=== PATIENT | female | born 1990 | race Caucasian/White ===

== ENCOUNTER 2024-07-21 23:37 | Inpatient (IN) | payer OTHER ==
[~2024-07-21] VITALS: Ht 167.6 cm; Wt 109.3 kg
[2024-07-21 23:45] VITALS: RESP 34
[2024-07-21] MEDS: SODIUM CHLORIDE 0.9% 1,000 ML IV SCH (23:50)
[2024-07-21] MEDS: FAMOTIDINE 20MG/2ML VIAL IV ONE (23:50)
[2024-07-21] MEDS: METHYLPREDNISOLONE SOD SUCC 125MG/2ML (ACT-O-VIAL) IV ONE (23:50)
[2024-07-21] MEDS: DIPHENHYDRAMINE 50MG/ML VIAL IV ONE (23:50)
[2024-07-21] MEDS: EPINEPHRINE 1:1000 1 MG/ML AMP IM ONE (23:51)
[2024-07-21 23:56] VITALS: RESP 34
[2024-07-21] MEDS: ALBUTEROL (0.5%) 2.5MG/0.5ML NEB HHN ONE (23:56)
[2024-07-22 00:02] LABS: BASOPHILS % 0.5 % (0.0-2.0); EOSINOPHILS % 2.1 % (0.0-5.0); HEMOGLOBIN. 14.8 g/dL (12.0-16.0); LYMPHOCYTES % 56.8 % (20.0-50.0); MEAN CORPUSCULAR HEMOGLOBIN 26.8 pg (28.0-32.0); MEAN CORPUSCULAR HGB CONC 32.8 g/dL (31.0-37.0); MEAN CORPUSCULAR VOLUME 81.7 fL (81.0-99.0); MEAN PLATELET VOLUME 9.7 fl (7.4-10.4); MONOCYTES % 6.8 % (2.0-8.0); NEUTROPHILS % 33.8 % (40.0-76.0); PLATELET 305 x1000/uL (130-400); RED CELL DISTRIBUTION WIDTH 14.9 % (11.6-14.6)
[2024-07-22 00:08] VITALS: RESP 32
[2024-07-22] MEDS: RACEPINEPHRINE 2.25% 0.5ML NEB VIAL HHN ONE (00:08)
[2024-07-22 00:13] LABS: CALCIUM 9.5 mg/dL (8.7-10.4)
[2024-07-22 00:17] LABS: CREATININE 1.1 mg/dL (0.6-1.0)
[2024-07-22 00:51] LABS: HCG SCREEN NEGATIVE
[2024-07-22] MEDS: POTASSIUM CHLORIDE 20MEQ/PACKET PO NR (01:00)
[2024-07-22] MEDS: SODIUM CHLORIDE 0.9% 1,000 ML IV ONE (01:00)
[2024-07-22] MEDS: INSULIN REGULAR (HUMULIN R) 1000UNITS/10ML VIAL SUBCUT NR (01:00)
[2024-07-22 01:02] LABS: INR 0.9; PROTHROMBIN TIME 10.5 sec (9.6-11.0)
[2024-07-22 01:27] LABS: BG BASE EXCESS -12.5 mmol/L (-2.0-3.0); BG CARBOXYHEMOGLOBIN 0.6 % (0.5-1.5); BG DEOXYHEMOGLOBIN 0.3 % (0.0-5.0); BG FRACTION INSPIRED OXYGEN 100; BG HCO3 ACT 13.2 mmol/L (21.0-28.0); BG METHEMOGLOBIN 0.2 % (0.5-1.5); BG OXYGEN SATURATION 99.7 % (94.0-98.0); BG OXYHEMOGLOBIN 98.9 % (94.0-98.0); BG PCO2 30.5 mmHg (32.0-45.0); BG PH 7.255 (7.350-7.450); BG PO2 595.5 mmHg (83.0-108.0); BG SAMPLE SITE RIGHT RADIAL; BG TOTAL RESPIRATORY RATE 18 b/min; BG VENT MODE MASK - BIPAP
[2024-07-22] MEDS: MAGNESIUM 1 G PREMIX 100 ML IV NR ×2 (02:14→04:30)
[2024-07-22 02:24] LABS: CHLORIDE 108 mEq/L (98-107); SODIUM 140 mEq/L (136-145)
[2024-07-22 02:25] LABS: CALCIUM 8.4 mg/dL (8.7-10.4); CARBON DIOXIDE 15 mEq/L (21-32)
[2024-07-22 02:30] LABS: UREA NITROGEN BLOOD 9 mg/dL (9-23)
[2024-07-22 02:34] LABS: GLUCOSE 467 mg/dL (70-105); POTASSIUM 2.7 mEq/L (3.5-5.1)
[2024-07-22] MEDS: KCL 20MEQ/100ML PREMIX 100 ML IV NR ×2 (04:23→04:30)
[2024-07-22] MEDS ORDERED: DEXTROSE 50% WATER 50ML SYRINGE IV PRN ×3 (04:30→16:00)
[2024-07-22] MEDS ORDERED: BLOOD SUGAR DIAGNOSTIC STRIP TEST PRN ×2 (04:30→08:15)
[2024-07-22] MEDS ORDERED: POTASSIUM CHLORIDE 40 MEQ in SODIUM CHLORIDE 0.9% 230 ML IV PRN (04:30)
[2024-07-22 05:02] LABS: CARBON DIOXIDE 14 mEq/L (21-32); CHLORIDE 112 mEq/L (98-107); POTASSIUM 4.1 mEq/L (3.5-5.1); SODIUM 140 mEq/L (136-145)
[2024-07-22 05:03] LABS: CALCIUM 8.4 mg/dL (8.7-10.4)
[2024-07-22 05:07] LABS: CREATININE 0.8 mg/dL (0.6-1.0)
[2024-07-22 05:08] LABS: UREA NITROGEN BLOOD 10 mg/dL (9-23)
[2024-07-22 05:10] LABS: PHOSPHORUS 3.1 mg/dL (2.5-4.9)
[2024-07-22] MEDS: SODIUM CHLORIDE 0.9% 1,000 ML IV SCH (05:10)
[2024-07-22] MEDS: BLOOD SUGAR DIAGNOSTIC STRIP TEST SCH ×3 (05:15→17:19)
[2024-07-22 05:18] LABS: GLUCOSE 423 mg/dL (70-105)
[2024-07-22 06:18] LABS: BG BASE EXCESS -13.3 mmol/L (-2.0-3.0); BG CARBOXYHEMOGLOBIN 0.4 % (0.5-1.5); BG DEOXYHEMOGLOBIN 2.3 % (0.0-5.0); BG HCO3 ACT 11.5 mmol/L (21.0-28.0); BG METHEMOGLOBIN 0.3 % (0.5-1.5); BG OXYGEN SATURATION 97.7 % (94.0-98.0); BG PCO2 24.8 mmHg (32.0-45.0); BG PH 7.283 (7.350-7.450); BG PO2 101.2 mmHg (83.0-108.0); BG SAMPLE SITE RIGHT RADIAL; BG VENT MODE ROOM AIR
[2024-07-22] MEDS: INSULIN LISPRO 100 UNITS/ML SUBCUT NR (08:13)
[2024-07-22] MEDS ORDERED: SODIUM CHLORIDE 0.45% 1,000 ML IV SCH (08:15)
[2024-07-22] MEDS: INSULIN REGULAR (HUMULIN R) 1000UNITS/10ML VIAL IV NR (08:28)
[2024-07-22 08:34] LABS: CLARITY URINE CLEAR (CLEAR); COLOR URINE YELLOW (YELLOW); GLUCOSE URINE 3+ (NEGATIVE); KETONES URINE 2+ (NEGATIVE); LEUKOCYTE ESTERASE URINE 2+ (NEGATIVE); NITRITE URINE NEGATIVE (NEGATIVE); OCCULT BLOOD URINE NEGATIVE (NEGATIVE); PROTEIN URINE NEGATIVE (NEGATIVE); SPECIFIC GRAVITY URINE 1.024 (1.005-1.030); UROBILINOGEN URINE 0.2 E.U./dL (0.2-1.0)
[2024-07-22 08:53] VITALS: RESP 23
[2024-07-22 08:54] LABS: BACTERIA URINE 2+; RBC URINE 0-2 /hpf (0-2); SQUAMOUS EPITHELIAL CELL URINE 1+ /lpf (RARE/1+); YEAST URINE 1+
[2024-07-22] MEDS ORDERED: POTASSIUM CHLORIDE 10 MEQ in SODIUM CHLORIDE 0.45% 1,000 ML IV SCH (09:00)
[2024-07-22 09:03] LABS: CHLORIDE 111 mEq/L (98-107); POTASSIUM 4.8 mEq/L (3.5-5.1); SODIUM 138 mEq/L (136-145)
[2024-07-22 09:04] LABS: CALCIUM 9.2 mg/dL (8.7-10.4); CARBON DIOXIDE 16 mEq/L (21-32)
[2024-07-22 09:09] LABS: CREATININE 0.8 mg/dL (0.6-1.0); GLUCOSE 393 mg/dL (70-105)
[2024-07-22 09:10] LABS: UREA NITROGEN BLOOD 12 mg/dL (9-23)
[2024-07-22] MEDS: SODIUM CHLORIDE 0.45% IV SCH (09:34)
[2024-07-22] MEDS: POTASSIUM CHLORIDE IV SCH (09:34)
[2024-07-22] MEDS: INSULIN REGULAR 100U/100ML PMX 100 ML IV SCH (09:35)
[2024-07-22 10:08] LABS: ALANINE AMINOTRANSFERASE 73 IU/L (10-49); ALBUMIN 4.5 g/dL (3.2-4.8); ASPARTATE AMINOTRANSFERASE 47 IU/L (<34); BILIRUBIN TOTAL 0.4 mg/dL (0.1-1.0)
[2024-07-22 10:09] LABS: PROTEIN TOTAL 7.7 g/dL (6.0-8.3)
[2024-07-22 10:19] LABS: BILIRUBIN DIRECT < 0.1 mg/dL (<=3.0)
[2024-07-22] MEDS: INSULIN REGULAR (DRIP) 100 UNITS in SODIUM CHLORIDE 0.9% 99 ML IV SCH (12:13)
[2024-07-22] MEDS ORDERED: INSULIN REGULAR 100U/100ML PMX 100 ML IV SCH (12:35)
[2024-07-22] MEDS: DEXT 5%/0.45% NACL 1000ML 1,000 ML IV SCH (12:40)
[2024-07-22 12:57] LABS: CHLORIDE 111 mEq/L (98-107); SODIUM 138 mEq/L (136-145)
[2024-07-22 12:58] LABS: CARBON DIOXIDE 18 mEq/L (21-32)
[2024-07-22 13:06] LABS: PHOSPHORUS 2.5 mg/dL (2.5-4.9)
[2024-07-22] MEDS: INSULIN GLARGINE 100 UNITS/ML SUBCUT NR (13:36)
[2024-07-22] MEDS: MAGNESIUM 2 G PREMIX 50 ML IV NR ×2 (14:30→21:53)
[2024-07-22] MEDS: INSULIN LISPRO 100 UNITS/ML SUBCUT SCH ×2 (17:40→18:05)
[2024-07-22] MEDS ORDERED: DIPHENHYDRAMINE 50MG/ML VIAL IV PRN (18:30)
[2024-07-22 19:00] VITALS: BP 133/86; PULSE 78; RESP 18; TEMP 36.8072
[2024-07-22] MEDS ORDERED: METF-414 PO (19:21)
[2024-07-22] MEDS ORDERED: CEPH500C2 PO (19:21)
[2024-07-22 20:00] VITALS: BP 141/69; PULSE 102; RESP 18; TEMP 36.6696; O2SAT 98
[2024-07-22] MEDS ORDERED: ACETAMINOPHEN 325MG TABLET PO PRN (20:45)
[2024-07-22] MEDS ORDERED: CLONIDINE 0.1MG TABLET PO PRN (20:45)
[2024-07-22] MEDS ORDERED: DOCUSATE SODIUM 100MG CAPSULE PO PRN (20:45)
[2024-07-22] MEDS ORDERED: IPRATROPIUM/ALBUTEROL 0.5-3(2.5)MG/3ML NEB HHN PRN (20:45)
[2024-07-22] MEDS ORDERED: ONDANSETRON HCL 4MG/2ML INJ IV PRN (20:45)
[2024-07-22 22:05] LABS: BASOPHILS % 0.1 % (0.0-2.0); EOSINOPHILS % 0.3 % (0.0-5.0); HEMATOCRIT. 39.3 % (36.0-48.0); LYMPHOCYTES % 18.9 % (20.0-50.0); MEAN CORPUSCULAR HEMOGLOBIN 26.8 pg (28.0-32.0); MEAN CORPUSCULAR VOLUME 81.1 fL (81.0-99.0); MEAN PLATELET VOLUME 9.7 fl (7.4-10.4); MONOCYTES % 6.3 % (2.0-8.0); NEUTROPHILS % 74.4 % (40.0-76.0); PLATELET 224 x1000/uL (130-400); RED BLOOD CELL COUNT 4.85 mill/uL (4.2-5.4); RED CELL DISTRIBUTION WIDTH 15.2 % (11.6-14.6); WHITE BLOOD COUNT 12.3 x1000/uL (4.5-11.0)
[2024-07-22 22:12] LABS: CHLORIDE 104 mEq/L (98-107); POTASSIUM 3.8 mEq/L (3.5-5.1); SODIUM 133 mEq/L (136-145)
[2024-07-22 22:13] LABS: CARBON DIOXIDE 22 mEq/L (21-32)
[2024-07-22 22:20] LABS: PHOSPHORUS 2.6 mg/dL (2.5-4.9)
[2024-07-22 22:24] LABS: ALANINE AMINOTRANSFERASE 55 IU/L (10-49); ALBUMIN 4.2 g/dL (3.2-4.8); ASPARTATE AMINOTRANSFERASE 21 IU/L (<34); BILIRUBIN TOTAL 0.4 mg/dL (0.1-1.0); CHLORIDE 105 mEq/L (98-107); CHOLESTEROL 255 mg/dL (<200); HDL CHOLESTEROL 50 mg/dL (>65); LDL CHOLESTEROL 175 mg/dL (5-100); POTASSIUM 3.8 mEq/L (3.5-5.1); PROTEIN TOTAL 7.2 g/dL (6.0-8.3); SODIUM 134 mEq/L (136-145)
[2024-07-22 22:25] LABS: CALCIUM 9.5 mg/dL (8.7-10.4); CARBON DIOXIDE 20 mEq/L (21-32)
[2024-07-22 22:27] LABS: BILIRUBIN DIRECT < 0.1 mg/dL (<=3.0)
[2024-07-22 22:30] LABS: CREATININE 0.9 mg/dL (0.6-1.0); GLUCOSE 382 mg/dL (70-105); TRIGLYCERIDE 357 mg/dL (0-150); UREA NITROGEN BLOOD 11 mg/dL (9-23)
[2024-07-22] MEDS: INSULIN GLARGINE 100 UNITS/ML SUBCUT SCH (22:34)
[2024-07-22] MEDS: DILTIAZEM HCL 30MG TABLET PO SCH (22:38)
[2024-07-23] VITALS: BP 132/62; PULSE 88; RESP 16; TEMP 36.55848; O2SAT 97
[2024-07-23] MEDS: CEFTRIAXONE 1GM/50ML 50 ML IV SCH
[2024-07-23 04:00] VITALS: BP 127/56; PULSE 80; RESP 18; TEMP 36.114; O2SAT 98
[2024-07-23 07:06] LABS: BASOPHILS % 0.3 % (0.0-2.0); EOSINOPHILS % 1.4 % (0.0-5.0); HEMATOCRIT. 40.3 % (36.0-48.0); HEMOGLOBIN. 12.9 g/dL (12.0-16.0); LYMPHOCYTES % 33.7 % (20.0-50.0); MEAN CORPUSCULAR HEMOGLOBIN 25.8 pg (28.0-32.0); MEAN CORPUSCULAR VOLUME 80.4 fL (81.0-99.0); MEAN PLATELET VOLUME 9.7 fl (7.4-10.4); MONOCYTES % 4.7 % (2.0-8.0); NEUTROPHILS % 59.9 % (40.0-76.0); PLATELET 222 x1000/uL (130-400); RED BLOOD CELL COUNT 5.02 mill/uL (4.2-5.4); RED CELL DISTRIBUTION WIDTH 15.1 % (11.6-14.6)
[2024-07-23 07:13] LABS: CARBON DIOXIDE 23 mEq/L (21-32); CHLORIDE 105 mEq/L (98-107); POTASSIUM 3.3 mEq/L (3.5-5.1); SODIUM 136 mEq/L (136-145)
[2024-07-23 07:14] LABS: CALCIUM 8.8 mg/dL (8.7-10.4)
[2024-07-23 07:18] LABS: CREATININE 0.6 mg/dL (0.6-1.0)
[2024-07-23 07:19] LABS: GLUCOSE 219 mg/dL (70-105); TRIGLYCERIDE 232 mg/dL (0-150); UREA NITROGEN BLOOD 14 mg/dL (9-23)
[2024-07-23 07:20] LABS: ALANINE AMINOTRANSFERASE 54 IU/L (10-49); ASPARTATE AMINOTRANSFERASE 30 IU/L (<34); CHOLESTEROL 249 mg/dL (<200); LDL CHOLESTEROL 179 mg/dL (5-100)
[2024-07-23 07:21] LABS: BILIRUBIN TOTAL 0.4 mg/dL (0.1-1.0); HDL CHOLESTEROL 50 mg/dL (>65); PHOSPHORUS 3.7 mg/dL (2.5-4.9)
[2024-07-23 07:22] LABS: BILIRUBIN DIRECT < 0.1 mg/dL (<=3.0)
[2024-07-23 08:00] VITALS: BP 134/83; PULSE 90; RESP 18; TEMP 36.44736; O2SAT 99
[2024-07-23 08:13] LABS: INR 0.9; PROTHROMBIN TIME 10.3 sec (9.6-11.0)
[2024-07-23] MEDS: POTASSIUM CHLORIDE 20MEQ TABLET SR PO NR (08:22)
[2024-07-23] MEDS: INSULIN LISPRO 100 UNITS/ML SUBCUT SCH (08:24)
[2024-07-23 08:36] LABS: CLARITY URINE CLEAR (CLEAR); COLOR URINE YELLOW (YELLOW); GLUCOSE URINE 3+ (NEGATIVE); KETONES URINE NEGATIVE (NEGATIVE); LEUKOCYTE ESTERASE URINE 2+ (NEGATIVE); NITRITE URINE NEGATIVE (NEGATIVE); OCCULT BLOOD URINE 1+ (NEGATIVE); PH URINE 5.5 (4.5-8.0); PROTEIN URINE TRACE (NEGATIVE); SPECIFIC GRAVITY URINE 1.042 (1.005-1.030); UROBILINOGEN URINE 0.2 E.U./dL (0.2-1.0)
[2024-07-23 08:50] LABS: BACTERIA URINE 2+; RBC URINE 0-2 /hpf (0-2); SQUAMOUS EPITHELIAL CELL URINE 1+ /lpf (RARE/1+); WBC URINE 25-50 /hpf (0-2); YEAST URINE 2+
[2024-07-23 09:15] LABS: *AMPHETAMINES SCREEN URINE NEGATIVE (NEGATIVE); *BARBITURATES SCREEN URINE NEGATIVE (NEGATIVE); *BENZODIAZEPINES SCREEN URINE NEGATIVE (NEGATIVE); *COCAINE SCREEN URINE NEGATIVE (NEGATIVE); METHADONE URINE SCREEN NEGATIVE (NEGATIVE); OPIATES URINE SCREEN NEGATIVE (NEGATIVE); PHENCYCLIDINE URINE SCREEN NEGATIVE (NEGATIVE)
[2024-07-23 09:16] LABS: CANNABINOID URINE SCREEN NEGATIVE (NEGATIVE); ECSTASY MDMA SCREEN URINE NEGATIVE (NEGATIVE)
[2024-07-23] MEDS: INSULIN GLARGINE 100 UNITS/ML SUBCUT SCH (09:16)
[2024-07-23] MEDS: ACETAMINOPHEN 325MG TABLET PO PRN (11:08)
[2024-07-23 12:00] VITALS: BP 157/93; PULSE 94; RESP 18; TEMP 36.50292; O2SAT 99
[2024-07-23 16:00] VITALS: BP 128/71; PULSE 92; RESP 18; TEMP 36.3918; O2SAT 100
[2024-07-23 20:00] VITALS: BP 132/68; PULSE 90; RESP 19; TEMP 36.33624; O2SAT 100
[2024-07-23] MEDS: ATORVASTATIN CALCIUM 40MG TABLET PO SCH (21:17)
[2024-07-24] VITALS: BP 128/68; PULSE 88; RESP 18; TEMP 36.55848; O2SAT 98
[2024-07-24 04:00] VITALS: BP 131/64; PULSE 88; RESP 18; TEMP 36.44736; O2SAT 98
[2024-07-24 06:59] LABS: CARBON DIOXIDE 25 mEq/L (21-32); CHLORIDE 106 mEq/L (98-107); POTASSIUM 3.4 mEq/L (3.5-5.1); SODIUM 138 mEq/L (136-145)
[2024-07-24 07:00] LABS: CALCIUM 8.8 mg/dL (8.7-10.4)
[2024-07-24 07:05] LABS: CREATININE 0.5 mg/dL (0.6-1.0); GLUCOSE 175 mg/dL (70-105)
[2024-07-24 07:06] LABS: UREA NITROGEN BLOOD 11 mg/dL (9-23)
[2024-07-24 07:08] LABS: PHOSPHORUS 4.2 mg/dL (2.5-4.9)
[2024-07-24 07:54] LABS: BASOPHILS % 0.4 % (0.0-2.0); EOSINOPHILS % 2.6 % (0.0-5.0); HEMATOCRIT. 41.8 % (36.0-48.0); HEMOGLOBIN. 13.9 g/dL (12.0-16.0); LYMPHOCYTES % 43.1 % (20.0-50.0); MEAN CORPUSCULAR HEMOGLOBIN 26.7 pg (28.0-32.0); MEAN CORPUSCULAR HGB CONC 33.2 g/dL (31.0-37.0); MEAN CORPUSCULAR VOLUME 80.5 fL (81.0-99.0); MEAN PLATELET VOLUME 9.6 fl (7.4-10.4); MONOCYTES % 6.6 % (2.0-8.0); NEUTROPHILS % 47.3 % (40.0-76.0); PLATELET 212 x1000/uL (130-400); WHITE BLOOD COUNT 6.6 x1000/uL (4.5-11.0)
[2024-07-24 08:00] VITALS: BP 139/68; PULSE 91; RESP 18; TEMP 36.44736; O2SAT 98
[2024-07-24 12:00] VITALS: BP 135/70; PULSE 90; RESP 20; TEMP 36.22512; O2SAT 99
[2024-07-24] MEDS ORDERED: INSU100I28 SQ (12:29)
[2024-07-24 15:47] VITALS: BP 131/74; PULSE 90; TEMP 97.7; O2SAT 98
[2024-07-24 16:00] VITALS: BP 131/67; PULSE 68; RESP 20; TEMP 36.44736; O2SAT 99
== END 2024-07-24 17:51 | disposition home or self-care (01) | DRG 811 ==
LOC: EDBD 23:37 → ER 23:37 → EDBEDREQ 07-22 00:57 → EDBEDREQSVC 07-22 04:25 → 8WST 07-22 16:19
PROVIDERS: ADMIT Internal Medicine; ATTEND Internal Medicine
PROC: 5A09357 Assistance with Respiratory Ventilation, Less than 24 Consecutive Hours, Continuous Positive Airway Pressure (ICD-10-PCS; principal; 2024-07-21)
DX: T78.2XXA Anaphylactic shock, unspecified, initial encounter (principal); N17.9 Acute kidney failure, unspecified; E11.10 Type 2 diabetes mellitus with ketoacidosis without coma; E87.1 Hypo-osmolality and hyponatremia; E87.6 Hypokalemia; N39.0 Urinary tract infection, site not specified; E11.65 Type 2 diabetes mellitus with hyperglycemia; R06.03 Acute respiratory distress; E83.42 Hypomagnesemia; X58.XXXA Exposure to other specified factors, initial encounter; I10 Essential (primary) hypertension; L40.9 Psoriasis, unspecified; Z82.49 Family history of ischemic heart disease and other diseases of the circulatory system; Z91.013 Allergy to seafood; Y93.89 Activity, other specified; Y92.89 Other specified places as the place of occurrence of the external cause; Y99.8 Other external cause status
CPT/HCPCS: 36415; 36600; 71045; 80048; 80051; 80061; 80076; 80305; 81003; 82010; 82375; 82805; 82962; 83036; 83605; 83735; 83930; 84100; 84145; 84703; 85025; 93005; 94640; 99291; J0696; J1200; J1815; J2919; J3475; J3480; J3490